=== PATIENT | female | born 1960 | race Caucasian/White ===

== ENCOUNTER 2018-09-13 17:14 | Emergency (ER) | payer OTHER ==
[2018-09-13] MEDS ORDERED: FAMOTIDINE 20 MG/50 ML IVPB 20 MG/50 ML MG IVPB ONE ×2 (17:19→18:34)
--- NOTE | 2018-09-13 17:21 | PDOC ---
Attending Attestation - Resident Resident Name: [email or web address] - ED Attending Attestation I have performed the following: I have examined & evaluated the patient, The case was reviewed & discussed with the resident, I agree w/resident's findings & plan, Exceptions are as noted - HPI HPI: 09/13/18 17:24 57y F no known pmhx presents with complaint of sob, swelling, after ingestioning apple from a shake. The patient notes she has had one episode of similar symptoms in the past after eating apples and it was determined that she was allergic to apples. There was reported by EMS that the patient was hypotensive however the patient's blood pressure was normal upon arrival . The pt denies any cp, headedness, rash, abdominal pain. GENERAL: The patient is awake, alert, and fully oriented, Nontoxic - in no acute distress. HEAD: Normocephalic, atraumatic, erythema of the face without any significant swelling EYES: extraocular movements intact, sclera anicteric, conjunctiva clear. ENT: Normal voice, Moist mucous membranes, unable to visualize uvula however no significant swelling in the posterior pharynx or on the tongue, no stridor appreciated NECK: Normal range of motion, supple LUNGS: Breath sounds equal, clear to auscultation bilaterally. No wheezes, no rhonchi, no rales. HEART: Regular rate and rhythm, normal S1 and S2 without murmur, rub or gallop. ABDOMEN: Soft, nontender No guarding, no rebound. . No CVA tenderness EXTREMITIES: Normal range of motion, no edema. NEUROLOGICAL: No facial assymetry, Normal speech, moving all 4 extremities spontaneously and symmetrically PSYCH: Normal mood, normal affect. SKIN: Warm, Dry, normal turgor, Suspect moderate ALLERGIC reaction no signs of anaphylaxis given decadron 10 and benadryl 50 by EMS will give protonix will continue to observe - Physicial Exam PE: 09/14/18 01:43 see above - Medical Decision Making 09/13/18 19:43 pt significantly better sleepy - likey due to benadryl no swelling voice normal will dc with pmd fu return precautions were discussed
--- NOTE | 2018-09-13 17:53 | PDOC ---
History of Present Illness - General Stated Complaint: ALLERGIC REACTION Time Seen by Provider: 09/13/18 17:20 History Source: Patient Exam Limitations: No Limitations - History of Present Illness Initial Comments: 09/13/18 17:50 Patient is a 57F with history of allergy to apples here today with an allergic reaction. Patient states that she had an smoothie that had apples in it. EMS reports that she was wheezing on the scene, she was given benadryl 50 IM and decadron 10 IM. Patient denies nausea, vomiting, rash. Daughter sees no signs of swelling to her face. Patient has never been hospitalized for allergic reaction. No chest pain. No shortness of breath. Past History - Past Medical History Allergies/Adverse Reactions: Allergies Allergy/AdvReac Type Severity Reaction Status Date / Time No Known Allergies Allergy Verified 08/13/14 18:29 Home Medications: Ambulatory Orders NK [No Known Home Medication] 08/02/14 - Immunization History Immunization Up to Date: Yes - Suicide/Smoking/Psychosocial Hx Smoking History: Never smoked Number of Cigarettes Smoked Daily: 1 Cigars Per Day: 0 Hx Alcohol Use: Yes (SOCIAL) Substance Use Type: None Review of Systems - Review of Systems Comments:: 09/13/18 17:51 GENERAL/CONSTITUTIONAL: No fever or chills. No weakness. HEAD, EYES, EARS, NOSE AND THROAT: No change in vision. No sore throat. CARDIOVASCULAR: No chest pain or shortness of breath RESPIRATORY: No cough, +wheezing GASTROINTESTINAL: No nausea, vomiting, diarrhea or constipation. GENITOURINARY: No dysuria, frequency, or change in urination. MUSCULOSKELETAL: No joint or muscle swelling or pain. No neck or back pain. SKIN: No rash NEUROLOGIC: No headache, vertigo, loss of consciousness, or change in strength/ sensation. ENDOCRINE: No increased thirst. No abnormal weight change HEMATOLOGIC/LYMPHATIC: No anemia, easy bleeding, or history of blood clots. ALLERGIC/IMMUNOLOGIC: No hives or skin allergy. *Physical Exam - Physical Exam Comments: 09/13/18 17:52 GENERAL: Awake, alert, and fully oriented, in no acute distress HEAD: No signs of trauma, normocephalic, atraumatic EYES: PERRLA, EOMI, sclera anicteric, conjunctiva clear ENT: Auricles normal inspection, hearing grossly normal, nares patent, oropharynx clear without exudates. Moist mucosa NECK: Normal ROM, supple, no lymphadenopathy, JVD, or masses LUNGS: No distress, speaks full sentences, clear to auscultation bilaterally HEART: Regular rate and rhythm, normal S1 and S2, no murmurs, rubs or gallops, peripheral pulses normal and equal bilaterally. ABDOMEN: Soft, nontender, normoactive bowel sounds. No guarding, no rebound. No masses EXTREMITIES: Normal inspection, Normal range of motion, no edema. No clubbing or cyanosis. NEUROLOGICAL: Cranial nerves II through XII grossly intact. Normal speech, no focal sensorimotor deficits SKIN: Warm, Dry, normal turgor, no rashes or lesions noted. ED Treatment Course - RADIOLOGY Radiology Studies Ordered: Category Date Time Status CHEST X-RAY PORTABLE* [RAD] Stat Radiology 09/13/18 17:24 Ordered Medical Decision Making - Medical Decision Making 09/13/18 17:52 Patient is 57F here today with allergic reaction. Vitals normal and stable. Patient not in anaphylaxis, normal exam. Given decadron/benadryl in field. Will give pepcid. Patient appears well. Will likely monitor and discharge. 09/13/18 17:53 CXR shows no acute cardiopulmonary process. 09/13/18 18:23 Patient reassessed, states that she's feeling better. Lungs clear. No rash, n/v , swelling, rash. Will monitor until 1900, discharge. 09/13/18 18:59 Reassess, lungs clear, feels normal. Discharged home. *DC/Admit/Observation/Transfer Diagnosis at time of Disposition: Allergic reaction - Discharge Dispostion Disposition: HOME Condition at time of disposition: Good Decision to Admit order: No - Referrals - Patient Instructions Printed Discharge Instructions: DI for General Allergic Reactions Additional Instructions: Please follow up with your primary care doctor regarding your allergy. Please return to the ED if you have any new, worsening or concerning symptoms, especially shortness of breath, vomiting and rash. - Post Discharge Activity
[2018-09-13 18:12] VITALS: BP 149/93; PULSE 102; TEMP 97.8; BMI 26.2
== END 2018-09-13 19:52 | disposition home or self-care (01) ==
LOC: JER 17:14
PROC: 3E033GC Introduction of Other Therapeutic Substance into Peripheral Vein, Percutaneous Approach (ICD-10-PCS; principal; 2018-09-13)
DX: T78.1XXA Other adverse food reactions, not elsewhere classified, initial encounter (principal); R06.2 Wheezing; X58.XXXA Exposure to other specified factors, initial encounter; Z91.018 Allergy to other foods
CPT/HCPCS: 71045-TC-FY; 99282-25